=== PATIENT | female | born 1970 | race Caucasian/White ===

== ENCOUNTER 2025-05-10 07:01 | Inpatient (IN) | payer MEDICAID ==
[2025-05-10 11:00] VITALS: BP 121/68; TEMP 97.6
[2025-05-10] MEDS ORDERED: MIDAZOLAM HCL 2 MG/2 ML VIAL ONE (12:24)
[2025-05-10] MEDS ORDERED: CEFAZOLIN 1 G VIAL ONE (12:24)
[2025-05-10] MEDS ORDERED: PROPOFOL 200 MG/20 ML BOTTLE ONE (12:24)
[2025-05-10] MEDS ORDERED: FAMOTIDINE. 20 MG/2 ML VIAL IV ONE (12:24)
[2025-05-10] MEDS ORDERED: FENTANYL CITRATE 100 MCG/2 ML AMPUL ONE (12:24)
[2025-05-10 14:54] VITALS: BP 194/95
[2025-05-10 15:25] VITALS: O2SAT 96
[2025-05-10] MEDS ORDERED: ONDANSETRON 4 MG/2 ML VIAL IV PRN (16:00)
[2025-05-10] MEDS: MORPHINE SULFATE 2 MG/1 ML DISP.SYRIN IV PRN (16:24)
[2025-05-10] MEDS ORDERED: ALBUTEROL SULFATE 2.5 MG/3 ML NEBU NEB PRN (17:00)
[2025-05-10] MEDS ORDERED: IPRATROPIUM BROMIDE 0.5 MG/2.5 ML NEBU NEB PRN (17:15)
[2025-05-10] MEDS ORDERED: REMEDY ESSENTIAL ZINC PASTE 113 GM TP PRN (17:15)
[2025-05-10] MEDS: MORPHINE SULFATE 2 MG/1 ML DISP.SYRIN IV ONE (19:49)
[2025-05-10 20:17] VITALS: O2SAT 98
[2025-05-10] MEDS: IPRATROPIUM BROMIDE 0.5 MG/2.5 ML NEBU NEB SCH (20:17)
[2025-05-10] MEDS: ALBUTEROL SULFATE 2.5 MG/3 ML NEBU NEB SCH (20:17)
[2025-05-10 20:32] VITALS: O2SAT 98; O2SAT 99
[2025-05-10 20:41] VITALS: BP 176/104; TEMP 98.1; O2SAT 95
[2025-05-10] MEDS: VITAMINS A AND D OINT 42 GM TUBE TP SCH (21:08)
[2025-05-10] MEDS: GABAPENTIN 100 MG CAPSULE PO SCH (21:08)
[2025-05-10] MEDS: REMEDY ESSENTIAL ZINC PASTE 113 GM TP SCH (21:10)
[2025-05-10] MEDS: CHLORHEXIDINE GLUCONATE 15 ML MOUTHWASH MM SCH (21:11)
[2025-05-11] VITALS (16 sets, daily range): BP systolic 10–153; BP diastolic 88–110; TEMP 97.6–99.4; O2SAT 93–99
[2025-05-11] MEDS: TRAMADOL HCL 50 MG TABLET PO PRN (00:12)
[2025-05-11 06:21] LABS: PLATELET COUNT (AUTO) 311 K/uL (179-408); RED BLOOD CELL COUNT(AUTO) 3.80 MIL/uL (3.63-4.92); RED CELL DISTRIBUTION WIDTH 13.7 % (12.3-17.7); WHITE BLOOD COUNT (AUTO) 9.4 K/uL (3.8-11.8)
[2025-05-11] MEDS: PANTOPRAZOLE SODIUM 40 MG VIAL IV SCH (06:30)
[2025-05-11 06:42] LABS: CREATININE 1.4 mg/dL (0.6-1.3); SODIUM SERUM 144.0 mmol/L (136-145); UREA NITROGEN, BLOOD 17.0 mg/dL (7-18)
[2025-05-11] MEDS: CLONIDINE-TTS 1 PATCH TD SCH (08:45)
[2025-05-11] MEDS: FLUTICASONE PROP NASAL SPRAY 16 GM BOTTLE NS SCH (08:46)
[2025-05-11] MEDS: POLYVINYL ALCOHOL OPHT DROPS 15 ML BOTTLE EACHEYE PRN (08:47)
[2025-05-11] MEDS: DOCUSATE SODIUM 100 MG CAPSULE PO SCH (08:47)
[2025-05-11] MEDS: SIMETHICONE 80 MG TAB.CHEW PO PRN (11:05)
[2025-05-11] MEDS: ACETAMINOPHEN 325 MG TABLET PO PRN (11:06)
[2025-05-11] MEDS ORDERED: ENOXAPARIN SODIUM 40 MG/0.4 ML DISP.SYRIN SQ SCH (21:00)
[2025-05-12] VITALS (12 sets, daily range): BP systolic 126–156; BP diastolic 80–96; TEMP 97.2–98.7; O2SAT 92–99
[2025-05-12 06:41] LABS: PLATELET COUNT (AUTO) 292 K/uL (179-408); RED BLOOD CELL COUNT(AUTO) 3.54 MIL/uL (3.63-4.92); RED CELL DISTRIBUTION WIDTH 13.7 % (12.3-17.7); WHITE BLOOD COUNT (AUTO) 8.3 K/uL (3.8-11.8)
[2025-05-12 07:05] LABS: CREATININE 1.7 mg/dL (0.6-1.3); SODIUM SERUM 144.0 mmol/L (136-145); UREA NITROGEN, BLOOD 25.0 mg/dL (7-18)
[2025-05-12] MEDS: MAGNESIUM HYDROXIDE 30 ML LIQUID UDC PO PRN (21:55)
[2025-05-12] MEDS: BISACODYL 10 MG SUPP.RECT RC PRN (22:00)
[2025-05-13] VITALS (11 sets, daily range): BP systolic 124–157; BP diastolic 73–91; TEMP 98.4–99.6; O2SAT 95–99
[2025-05-13 06:35] LABS: PLATELET COUNT (AUTO) 292 K/uL (179-408); RED BLOOD CELL COUNT(AUTO) 3.62 MIL/uL (3.63-4.92); RED CELL DISTRIBUTION WIDTH 13.3 % (12.3-17.7); WHITE BLOOD COUNT (AUTO) 8.2 K/uL (3.8-11.8)
[2025-05-13 06:50] LABS: CREATININE 1.6 mg/dL (0.6-1.3); SODIUM SERUM 144.0 mmol/L (136-145); UREA NITROGEN, BLOOD 30.0 mg/dL (7-18)
[2025-05-13] MEDS ORDERED: HYDROCODONE/APAP 5-325MG TABLET PO PRN (08:30)
[2025-05-13] MEDS ORDERED: MAGNESIUM HYDROXIDE 30 ML LIQUID UDC PO PRN (13:15)
[2025-05-14] VITALS (18 sets, daily range): BP systolic 118–150; BP diastolic 74–94; TEMP 97.5–98.8; O2SAT 96–99
[2025-05-14 06:49] LABS: PLATELET COUNT (AUTO) 297 K/uL (179-408); RED BLOOD CELL COUNT(AUTO) 3.68 MIL/uL (3.63-4.92); RED CELL DISTRIBUTION WIDTH 13.7 % (12.3-17.7); WHITE BLOOD COUNT (AUTO) 8.1 K/uL (3.8-11.8)
[2025-05-14 07:03] LABS: CREATININE 1.7 mg/dL (0.6-1.3); SODIUM SERUM 144.0 mmol/L (136-145); UREA NITROGEN, BLOOD 33.0 mg/dL (7-18)
[2025-05-14] MEDS: MIRALAX 17 GM POWD.PACK PO SCH (13:13)
[2025-05-14] MEDS: IV NS 1000 ML 1,000 ML IV ONE (13:35)
[2025-05-14] MEDS: SENNOSIDES 1 TABLET PO ONE (21:26)
[2025-05-14] MEDS: MORPHINE SULFATE 2 MG/1 ML DISP.SYRIN IV PRN (21:28)
[2025-05-15] VITALS (11 sets, daily range): BP systolic 129–154; BP diastolic 68–83; TEMP 97.7–98.5; O2SAT 96–99
[2025-05-15] MEDS: PANTOPRAZOLE SODIUM 40 MG TABLET.DR PO SCH (06:17)
[2025-05-15 06:46] LABS: PLATELET COUNT (AUTO) 269 K/uL (179-408); RED BLOOD CELL COUNT(AUTO) 3.26 MIL/uL (3.63-4.92); RED CELL DISTRIBUTION WIDTH 13.4 % (12.3-17.7); WHITE BLOOD COUNT (AUTO) 7.7 K/uL (3.8-11.8)
[2025-05-15 06:59] LABS: CREATININE 1.4 mg/dL (0.6-1.3); SODIUM SERUM 144.0 mmol/L (136-145); UREA NITROGEN, BLOOD 31.0 mg/dL (7-18)
[2025-05-15] MEDS: POTASSIUM CHLORIDE 20 MEQ TAB.PRT.SR PO ONE (09:31)
[2025-05-15] MEDS ORDERED: PANT40TA49 PO (10:50)
[2025-05-15] MEDS ORDERED: LEVE100S PO (10:50)
[2025-05-15] MEDS ORDERED: IPRA0.2S6 NEB ×2 (10:50)
[2025-05-15] MEDS ORDERED: GABA-532 PO (10:50)
[2025-05-15] MEDS ORDERED: TRAM50TA2 PO (10:50)
[2025-05-15] MEDS ORDERED: SIME80TA16 PO (10:50)
[2025-05-15] MEDS ORDERED: POLY15DR27 EACHEYE (10:50)
[2025-05-15] MEDS ORDERED: MAGN400O6 PO (10:50)
[2025-05-15] MEDS ORDERED: FLUT16SP16 NS (10:50)
[2025-05-15] MEDS ORDERED: CHLO473M7 MM (10:50)
[2025-05-15] MEDS ORDERED: CLON1PAT TD (10:50)
[2025-05-15] MEDS ORDERED: MENT113O TP ×2 (10:50)
[2025-05-15] MEDS ORDERED: ACET-3752 PO (10:50)
[2025-05-15] MEDS ORDERED: ALBU2.5V7 NEB ×2 (10:50)
[2025-05-15] MEDS ORDERED: VITS42.53 TP (10:50)
[2025-05-15] MEDS ORDERED: BISA10SU12 RC (10:50)
[2025-05-15] MEDS ORDERED: POLY17PO4 PO (10:50)
== END 2025-05-15 16:00 | DRG 220 ==
LOC: DS 07:01 → TELE3 14:45
PROC: 0WQF0ZZ Repair Abdominal Wall, Open Approach (ICD-10-PCS; principal; 2025-05-10 12:00)
PROC: 0DH63UZ Insertion of Feeding Device into Stomach, Percutaneous Approach (ICD-10-PCS; principal; 2025-05-10 12:00)
PROC: 0DB60ZZ Excision of Stomach, Open Approach (ICD-10-PCS; principal; 2025-05-10 12:00)
DX: K94.29 Other complications of gastrostomy (principal); G93.40 Encephalopathy, unspecified; K31.6 Fistula of stomach and duodenum; I69.251 Hemiplegia and hemiparesis following other nontraumatic intracranial hemorrhage affecting right dominant side; N17.9 Acute kidney failure, unspecified; J96.11 Chronic respiratory failure with hypoxia; Z93.0 Tracheostomy status; F09 Unspecified mental disorder due to known physiological condition; G40.909 Epilepsy, unspecified, not intractable, without status epilepticus; K25.9 Gastric ulcer, unspecified as acute or chronic, without hemorrhage or perforation; E11.22 Type 2 diabetes mellitus with diabetic chronic kidney disease; N18.9 Chronic kidney disease, unspecified; I13.10 Hypertensive heart and chronic kidney disease without heart failure, with stage 1 through stage 4 chronic kidney disease, or unspecified chronic kidney disease; E66.9 Obesity, unspecified; R13.10 Dysphagia, unspecified; I69.298 Other sequelae of other nontraumatic intracranial hemorrhage; Z86.718 Personal history of other venous thrombosis and embolism; Z98.2 Presence of cerebrospinal fluid drainage device; K21.9 Gastro-esophageal reflux disease without esophagitis; K43.9 Ventral hernia without obstruction or gangrene; Z71.3 Dietary counseling and surveillance; Z68.32 Body mass index [BMI] 32.0-32.9, adult; R09.81 Nasal congestion
CPT/HCPCS: 36415; 71045; 74018; 83735; 84100; 85025; 94640; 94760; G0378; J0690; J1308; J2250; J2270; J2470; J3010; J3490; J3590; J7040